=== PATIENT | male | born 1935 | race Caucasian/White ===

== ENCOUNTER 2020-08-12 07:42 | Outpatient (CLI) | payer MEDICARE, SELFPAY ==
--- NOTE | 2020-08-12 07:54 | ECHO_ITS ---
Patient Info Name: Ramirez Chang Age: 85 years : 1935 Gender: Male Ht: 68 in Wt: 170 lbs BSA: 1.94 m2 HR: 81 bpm BP: 159 / 80 mmHg Technical Quality: Good Exam Date: 08/12/2020 8:22 AM Exam Location: [facility] Patient Status: Outpatient Admit Date: 08/12/2020 Staff Ordering Physician: Bronson Joyce DO Coconut Candy Maker: HELDER Attending Provider: Bronson Joyce DO Exam Type: CA echo doppler color flow Study Info Indications I35.0 - Nonrheumatic aortic (valve) stenosis Complete two-dimensional, color flow and Doppler transthoracic echocardiogram is performed. Summary 1. Complete two-dimensional, color flow and Doppler transthoracic echocardiogram is performed. 2. Left ventricular chamber dimension is normal. 3. Left ventricular systolic function is normal, estimated at 60-65%. 4. The left ventricular diastolic function is abnormal. 5. There is mild to moderate aortic valve stenosis with a peak velocity of 256 cm/s, mean gradient of 13 mmHg, and aortic valve area of 1.1 cm2. 6. There is mild aortic valve calcification. 7. There is mild mitral valve regurgitation. 8. There is mild tricuspid valve regurgitation. 9. No pulmonary hypertension, estimated pulmonary arterial systolic pressure is 36 mmHg. 10. Compared to an echo done in 2019, there is some progression of aortic valve stenosis severity. Valve area measured 1.5 cm in 2019. Left Ventricle Left ventricular chamber dimension is normal. Left ventricular systolic function is normal, estimated at 60-65%. There is no increased left ventricular wall thickness. Left ventricular septal wall motion is normal. The left ventricular diastolic function is abnormal. Right Ventricle Right ventricular chamber dimension is normal. Right ventricular systolic function is normal. Left Atria Left atrial chamber dimension is mildly enlarged. Right Atria Right atrial chamber dimension is normal. Atrial Septum Intact interatrial septum visualized by color flow imaging. Aortic Valve The aortic valve is not well visualized. There is no aortic valve sclerosis. There is mild to moderate aortic valve stenosis with a peak velocity of 256 cm/s, mean gradient of 13 mmHg, and aortic valve area of 1.1 cm2. There is no aortic valve regurgitation. There is mild aortic valve calcification. Pulmonic Valve The pulmonic valve is normal. There is no pulmonic valve stenosis. There is no pulmonic regurgitation. Mitral Valve The mitral valve has calcified annulus. There is no mitral valve stenosis. There is mild mitral valve regurgitation. Tricuspid Valve The tricuspid valve leaflets are normal. There is no significant tricuspid valve stenosis. There is mild tricuspid valve regurgitation. No pulmonary hypertension, estimated pulmonary arterial systolic pressure is 36 mmHg. Pericardium/Pleural The pericardium appears normal. There is no pericardial effusion. Inferior Vena Cava Normal inferior vena cava with >50% collapse upon inspiration consistent with elevated right atrial pressure, 10 mmHg. Aorta The aortic root size at the sinus of Valsalva is normal. The prox ascending aorta size is normal. Left Ventricular Outflow Tract Name Value Normal LVOT 2D
== END 2020-08-12 07:43 | disposition home or self-care (01) ==
PROVIDERS: PCP Internal Medicine; Visit Provider Internal Medicine
DX: I35.0 Nonrheumatic aortic (valve) stenosis (principal); I34.0 Nonrheumatic mitral (valve) insufficiency; I36.1 Nonrheumatic tricuspid (valve) insufficiency
CPT/HCPCS: 93306

== ENCOUNTER 2021-04-14 12:05 | Outpatient (CLI) | payer MEDICARE, SELFPAY ==
--- NOTE | ~2021-04-14 | US_ITS ---
EXAMINATION: US carotid duplex BI DATE: 04/14/2021 12:31 INDICATION: Carotid bruit. TECHNIQUE: Grayscale, color Doppler, and pulsed Doppler images of the cervical carotid arteries were obtained. The degree of vessel stenosis is placed in one of the following categories: normal, <50%, 5 0-69%, >=70% but less than near-occlusion, near-occlusion, or total occlusion. Note that percent sten osis relative to normal distal artery lumen diameter is indirectly measured from velocity measurement s as described by Mandeep, et al. Radiology 2003; 229:340-346. COMPARISON: Neck CT 01/11/2017 FINDINGS: RIGHT: The right common carotid artery (CCA) peak systolic velocity (PSV) is 113 cm/s. The right internal ca rotid artery (ICA) PSV is 89 cm/s. The right ICA end-diastolic velocity (EDV) is 14 cm/s. The right I CA/CCA PSV ratio is 0.8. Grayscale and color Doppler images yield an estimate of <50% diameter reduct ion from plaque in the ICA. There is antegrade flow in the right vertebral artery. LEFT: The left CCA PSV is 102 cm/s. The left ICA PSV is 97 cm/s. The left ICA EDV is 15 cm/s. The left ICA/ CCA PSV ratio is 0.9. Grayscale and color Doppler images yield an estimate of <50% diameter reduction from plaque in the ICA. There is antegrade flow in the left vertebral artery. IMPRESSION: 1. <50% stenosis in the right internal carotid artery. 2. <50% stenosis in the left internal carotid artery. Reviewed, dictated and finalized at location A. LATORY AFFAIRS COORDINATOR
== END 2021-04-14 12:06 | disposition home or self-care (01) ==
PROVIDERS: PCP Internal Medicine; Visit Provider Internal Medicine Cardiovascular Disease
DX: R09.89 Other specified symptoms and signs involving the circulatory and respiratory systems (principal); I65.23 Occlusion and stenosis of bilateral carotid arteries
CPT/HCPCS: 93880

== ENCOUNTER 2021-09-07 13:08 | Outpatient (CLI) | payer MEDICARE, SELFPAY ==
--- NOTE | 2021-09-07 13:28 | ECHO_ITS ---
Patient Info Name: Ramirez Chang Age: 86 years : 1935 Gender: Male Ht: 68 in Wt: 170 lbs BSA: 1.94 m2 HR: 74 bpm BP: 129 / 73 mmHg Technical Quality: Good Exam Date: 09/07/2021 1:45 PM Exam Location: [facility] Patient Status: Outpatient Admit Date: 09/07/2021 Staff Ordering Physician: Satnam Mackenzie DO Automobile Glass Technician: Leighann Smith RCS Attending Provider: Satnam Mackenzie DO Referring Physician: Gurdeep HENRY; Exam Type: CA echo doppler color flow Study Info Indications - nonrheumatic aortic valve stenosis Complete two-dimensional, color flow and Doppler transthoracic echocardiogram is performed. Summary 1. Complete two-dimensional, color flow and Doppler transthoracic echocardiogram is performed. 2. Left ventricular chamber dimension is normal. 3. Left ventricular systolic function is normal, estimated at 65-70%. 4. The left ventricular diastolic function is grade I diastolic dysfunction. 5. E/e' 9 is minimally elevated. 6. Left atrial chamber dimension is mildly enlarged. 7. There is moderate aortic valve sclerosis. 8. There is mild aortic valve stenosis with a peak velocity of 224 cm/s, mean gradient of 11 mmHg, and aortic valve area of 1.7 cm2. 9. The mitral valve has mildly calcified annulus. 10. There is trace mitral valve regurgitation. 11. There is trace tricuspid valve regurgitation. 12. No pulmonary hypertension, estimated pulmonary arterial systolic pressure is 34 mmHg. 13. There is trace pulmonic regurgitation. Left Ventricle E/e' 9 is minimally elevated. Left ventricular chamber dimension is normal. Left ventricular systolic function is normal, estimated at 65-70%. The left ventricular diastolic function is grade I diastolic dysfunction. Right Ventricle Right ventricular chamber dimension is normal. Right ventricular systolic function is normal. Left Atria Left atrial chamber dimension is mildly enlarged. Right Atria Right atrial chamber dimension is normal. Aortic Valve The aortic valve is trileaflet. There is moderate aortic valve sclerosis. There is mild aortic valve stenosis with a peak velocity of 224 cm/s, mean gradient of 11 mmHg, and aortic valve area of 1.7 cm2. There is no aortic valve regurgitation. Pulmonic Valve There is trace pulmonic regurgitation. Mitral Valve The mitral valve has mildly calcified annulus. There is no mitral valve stenosis. There is trace mitral valve regurgitation. Tricuspid Valve There is trace tricuspid valve regurgitation. No pulmonary hypertension, estimated pulmonary arterial systolic pressure is 34 mmHg. Pericardium/Pleural There is no pericardial effusion. Inferior Vena Cava Normal inferior vena cava with >50% collapse upon inspiration consistent with normal right atrial pressure, 5 mmHg. Aorta The aortic root size at the sinus of Valsalva is normal. Left Ventricular Outflow Tract Name Value Normal LVOT 2D LVOT Diameter 2.0 cm LVOT Doppler LVOT Peak Gradient 6 mmHg LVOT Mean Gradient 3 mmHg LVOT VTI 26 cm
== END 2021-09-07 13:09 | disposition home or self-care (01) ==
LOC: ANHCARD 13:09
PROVIDERS: PCP Internal Medicine; Visit Provider Internal Medicine Cardiovascular Disease
DX: I35.0 Nonrheumatic aortic (valve) stenosis (principal)
CPT/HCPCS: 93306

== ENCOUNTER 2021-11-08 21:17 | Emergency (ER) | payer MEDICARE, SELFPAY ==
--- NOTE | ~2021-11-08 | XR_ITS ---
EXAMINATION: XR chest 2V Exam Date/Time: 11/08/2021 22:35 CDT HISTORY: MID STERNAL LT SIDE CHEST/BACK PAIN X 5HRS NO CARDIAC HX Comparison: 01/10/2017. RESULT: Lines, tubes, and devices: Cholecystectomy clips. Lungs and pleura: Low lung volumes. Senescent change with bibasilar scar/atelectasis. Cardiomediastinal silhouette: Stable. Other: No acute osseous or upper abdominal finding. IMPRESSION: No acute cardiopulmonary process. Reviewed, dictated and finalized at location K.
--- NOTE | 2021-11-08 21:19 | ECG_ITS ---
Measurements Intervals [place] Rate: 94 P: 59 UT: 168 QRS: 73 QRSD: 96 T: 63 QT: 338 QTc: 423 Interpretive Statements SINUS RHYTHM POSSIBLE LEFT ATRIAL ENLARGEMENT [-0.1mV P WAVE IN V1/V2] BORDERLINE ECG NO PREVIOUS ECG AVAILABLE FOR COMPARISON Electronically Signed On 11-09-2021 14:58:28 CDT by Thomas Munoz M.D.
[2021-11-08 21:28] VITALS: BP 138/39; PULSE 94; RESP 18; TEMP 37.3; O2SAT 97
[2021-11-08 21:38] LABS: Basophils Absolute Auto 0.1 K/mm3 (0.0-0.1); Basophils Percent Auto 0.5 % (0.2-1.2); Eosinophils Percent Auto 0.4 % (0-4.4); Hemoglobin 12.5 g/dL (14.0-18.0); Immature Granulocyte Absolute 0.05 K/mm3 (0.00-0.031); Immature Granulocyte Percent A 0.5 % (0-0.5); Lymphocytes Absolute Auto 1.19 K/mm3 (0.9-3.2); Lymphocytes Percent Auto 10.7 % (18.3-44.2); Mean Corpuscular HGB Conc 33.8 g/dl (32-36); Mean Corpuscular Hemoglobin 30.9 pg (26-34); Mean Corpuscular Volume 91.6 fl (80-100); Mean Platelet Volume 8.7 fl (7.4-10.4); Monocytes Absolute Auto 0.7 K/mm3 (0.1-0.6); Monocytes Percent Auto 6.7 % (2.6-8.5); Neutrophils Percent Auto 81.2 % (45.5-73.1); Platelet Count Result 170 k/mm3 (150-375); Red Blood Count 4.04 M/mm3 (4.6-6.20); Red Cell Distribution Width 13.2 % (11.5-14.5); White Blood Count 11.1 K/mm3 (4.5-10.0)
[2021-11-08 21:48] LABS: Alanine Aminotransferase 23 U/L (6-50); Albumin Level 4.3 g/dL (3.5-5.1); Alkaline Phosphatase 91 U/L (38-126); Anion Gap 8 mmol/L (8-16); Aspartate Amino Transferase 28 U/L (17-59); Bilirubin,Total 0.6 mg/dL (0.2-1.3); Blood Urea Nitrogen 20 mg/dL (9-20); Calcium 8.8 mg/dL (8.4-10.2); Carbon Dioxide 23 mmol/L (22-30); Chloride 98 mmol/L (98-107); Estimated CRCL calculation 52 ml/min; Estimated Glomerular Filt Rate > 60; Glucose 152 mg/dL (65-110); Lipase 55 U/L (23-300); Potassium 3.6 mmol/L (3.4-5.0); Sodium 129 mmol/L (137-145)
[2021-11-08 21:52] LABS: INR 1.2; Prothrombin Time 14.5 Seconds (11.1-14.7)
[2021-11-08 21:53] LABS: Partial Thromboplastin Time 33.1 SECONDS (22.3-36.8)
[2021-11-08 22:00] LABS: Troponin I < 0.012 ng/mL (0.000-0.034)
--- NOTE | 2021-11-09 01:48 | PC.NURSE ---
Pt ambulatory to ED. States i've been waiting here 5 hours. I have to give a ride to someone to the airport in 2 hours, and I don't think I will be done . Reports came in for left lateral chest pain that is worse with inspiration. Pt states I played golf today, I think that's what did it. I'm assuming everything is fine since I haven't been called back . States I actually feel better now . Explained that I have not looked at his labs that were drawn nor can comment on if normal or abnormal, that he needs to see a doctor. Verb understanding. States I'll be back if it starts hurting again . Pt and spouse ambulatory to d/c.
== END 2021-11-09 01:42 | disposition left against medical advice (07) ==
LOC: ANHED 23:51
PROVIDERS: Emergency Provider Emergency Medicine; PCP Internal Medicine
DX: R07.9 Chest pain, unspecified (principal); Z53.21 Procedure and treatment not carried out due to patient leaving prior to being seen by health care provider
CPT/HCPCS: 36415; 71046; 80053; 83690; 84484; 85025; 85610; 85730; 93005; 99199

== ENCOUNTER 2022-03-04 17:07 | Inpatient (IN) | payer MEDICARE, SELFPAY ==
[2022-03-04] VITALS (31 sets, daily range): BP systolic 120–152; BP diastolic 47–75; PULSE 63–91; RESP 17–31; TEMP 36.1–37.4; O2SAT 93–100; BMI 25.9; BMI 25.6
--- NOTE | ~2022-03-04 | XR_ITS ---
EXAMINATION: XR chest 2V DATE: 03/04/2022 18:58 INDICATION: Left chest pain. TECHNIQUE: Frontal and lateral views of the chest were obtained. COMPARISON: Chest 2 views 11/08/2021, CT abdomen and pelvis 02/27/2019 FINDINGS: There are airspace opacities at the lung bases. No pleural effusion or pneumothorax. The he art size is normal. Surgical clips in the right upper quadrant are likely from cholecystectomy. IMPRESSION: 1. Airspace opacities at the lung bases, likely atelectasis. Reviewed, dictated and finalized at location A. PROCESSOR
--- NOTE | ~2022-03-04 | CT_ITS ---
EXAMINATION: CTA chest PE protocol DATE: 03/04/2022 19:47 INDICATION: Left chest pain. TECHNIQUE: Computed tomography angiography (CTA) of the chest was performed with 100 mL Omnipaque-350 intravenous contrast timed to evaluate the pulmonary arteries. Coronal maximum intensity projection 3D-reconstructions were created by the technologist. Automated exposure control and iterative reconst ruction technique were employed. The dose-length product was 269.26 mGy-cm. COMPARISON: CT abdomen and pelvis 02/27/2019 FINDINGS: There is mild atelectasis bilaterally. There are airspace and groundglass opacities in left lower lobe, consistent with infarct. There are trace pleural effusions. Cardiomegaly is noted. No ri ght heart strain. No pericardial effusion. There are acute pulmonary emboli involving the upper lobes and lower lobes. There is mild thoracic spondylosis. IMPRESSION: 1. Acute pulmonary emboli involving the upper lobes and lower lobes. I called this result to Dr. Pierre beal. 2. Airspace and groundglass opacities in left lower lobe, consistent with infarct. Reviewed, dictated and finalized at location A. CAPTAIN IMPRESSION: 1. Acute pulmonary emboli involving the upper lobes and lower lobes. I called t his result to Dr. Robison. 2. Airspace and groundglass opacities in left lower lobe, consistent with infar ct.
--- NOTE | 2022-03-04 18:33 | ED.BACK ---
HPI - Back Pain/Injury General Chief Complaint: Back Pain/Injury Stated Complaint: BACK PAIN Time Seen by Provider: 03/04/22 17:47 History of Present Illness HPI Narrative: 86-year-old male presented to the emergency department for evaluation of left flank pain. Patient states over the course of the day he has developed left-sided chest wall/flank pain. Patient states that the pain started approximately 4 AM. Patient reports last week he did have influenza. Patient states pain is nonradiating at this time. Patient states pain did previously radiate to his left shoulder. Patient states pain is worsened with deep inspiration. Patient does report a history of hypertension, anemia, high cholesterol. Related Data Home Medications Medication Instructions Recorded Confirmed calcium polycarbophil 625 mg 1,250 mg PO BID 01/06/19 03/03/22 tablet (FiberCon) cetirizine 10 mg tablet (Zyrtec) 5 mg PO DAILY PRN 01/06/19 03/03/22 ferrous sulfate 325 mg (65 mg 325 mg PO DAILY 01/06/19 03/03/22 iron) tablet,delayed release acetaminophen 650 mg 650 mg PO Q12H 09/09/20 03/03/22 tablet,extended release (Tylenol Arthritis Pain) Allergies Allergy/AdvReac Type Severity Reaction Status Date / Time No Known Allergies Allergy Unknown Verified 03/04/22 17:13 Review of Systems Review of Systems: CONSTITUTIONAL: Denies fever, chills, or sweats. EYES: Denies visual changes, redness, or discharge. ENT: Denies rhinorrhea, congestion, sore throat, or otalgia. CARDIOVASCULAR: Left-sided chest wall pain tenderness to palpation RESPIRATORY: Denies cough or dyspnea. GASTROINTESTINAL: Denies abdominal pain, nausea, vomiting, or diarrhea. GENITOURINARY: Denies dysuria or hematuria. SKIN: Denies rash or itching. MUSCULOSKELETAL: Denies back pain, joint pain, or myalgia. NEUROLOGIC: Denies headache, numbness, or weakness. [facility] Past Medical History Medical History Allergies Skin cancer Family History Family History Sibling Malignant neoplasm of prostate Father Family history of lung cancer, Onset Age: 81 Patient's father is Mother Patient's mother is Social History Social History (Updated 03/03/22 @ 09:49 by Callum Flores MA) Smoking packs per day: 1 Smoking cigarettes per day: 20.0 Years smoked: 15 Smoking pack-years: 15.00 Smoking status: Former smoker Second hand tobacco smoke exposure: No Smoking end date: 02/06/72 Alcohol intake: current Lack of Transportation: No Lack of Food: Never True Current Housing: I Have Housing Concerned About Future Housing: No Difficulty Paying Gas/Electric Bills: No Difficulty Paying for Meds: No Currently Unemployed: No Education: High School Diploma/GED Difficulty w/ Childcare or Family Care: No Exam Narrative: APPEARANCE: Well appearing, no pain, no distress, well-nourished. HEAD: normocephalic, atraumatic. EYES: PERRLA/EOMI, conjunctivae clear. NOSE: Normal no drainages. RESPIRATORY: Airway patent, respirations nonlabored. Clear to auscultation bilaterally, no rales, rhonchi, wheezing. CARDIOVASCULAR: Regular rate and rhythm without murmurs rubs or gallops. Reproducible left-sided chest wall tenderness to palpation. ABDOMINAL: Soft, nontender, nondistended, normal bowel sounds MUSCULOSKELETAL: Moves all extremities. Strength/ROM intact, No edema, No calf tenderness. NEURO: Alert. Cranial nerves II through XII intact. Grossly intact SKIN: Warm, dry. Normal Color Course Course Emergency Course: D-dimer was ordered due to clinical concern for pulmonary embolism. Pneumonia, pneumothorax, rib fractures were excluded by the chest x-ray. Patient's D-dimer was elevated and ultimately the CTA did show left-sided pulmonary infarct along with pulmonary embolism. Patient was started on Lovenox. Nicole
[2022-03-04] MEDS: KETOROLAC 15 MG/ML VIAL (*BKC) IV PUSH (18:37)
[2022-03-04 18:52] LABS: Basophils Percent Auto 0.2 % (0.2-1.2); Eosinophils Percent Auto 0.2 % (0-4.4); Hematocrit 35.6 % (42.0-52.0); Hemoglobin 12.2 g/dL (14.0-18.0); Immature Granulocyte Absolute 0.11 K/mm3 (0.00-0.031); Immature Granulocyte Percent A 0.9 % (0-0.5); Lymphocytes Absolute Auto 1.36 K/mm3 (0.9-3.2); Lymphocytes Percent Auto 10.8 % (18.3-44.2); Mean Corpuscular HGB Conc 34.3 g/dl (32-36); Mean Corpuscular Volume 90.4 fl (80-100); Mean Platelet Volume 8.6 fl (7.4-10.4); Monocytes Absolute Auto 1.2 K/mm3 (0.1-0.6); Monocytes Percent Auto 9.5 % (2.6-8.5); Neutrophils Absolute Auto 9.9 K/mm3 (1.3-6.7); Neutrophils Percent Auto 78.4 % (45.5-73.1); Platelet Count Result 226 k/mm3 (150-375); Red Blood Count 3.94 M/mm3 (4.6-6.20); Red Cell Distribution Width 12.9 % (11.5-14.5); White Blood Count 12.7 K/mm3 (4.5-10.0)
[2022-03-04 18:54] LABS: Appearance Urine Clear (Clear); Bilirubin Urine Negative (Negative); Blood Urine Trace-lysed (Negative); Color Urine Yellow (Yellow); Glucose Urine UA Negative (Negative); Ketones Urine Negative (Negative); Leukocyte Esterase Ur Negative LEU/UL (Negative); Nitrate Urine Negative (Negative); Protein Urine Negative (Negative); Specific Grav Ur 1.015 (1.001-1.035)
[2022-03-04 19:01] LABS: Amorphous Sediment Urine Few; Squamous Epithelial Cell Urine Rare /hpf (Few); WBC Urine 0-3 /hpf
[2022-03-04 19:02] LABS: Alanine Aminotransferase 26 U/L (6-50); Alkaline Phosphatase 112 U/L (38-126); Anion Gap 7 mmol/L (8-16); Aspartate Amino Transferase 29 U/L (17-59); Bilirubin,Total 0.7 mg/dL (0.2-1.3); Blood Urea Nitrogen 19 mg/dL (9-20); Calcium 8.6 mg/dL (8.4-10.2); Carbon Dioxide 26 mmol/L (22-30); Chloride 92 mmol/L (98-107); Estimated CRCL calculation 58 ml/min; Estimated Glomerular Filt Rate > 60; Glucose 108 mg/dL (65-110); Sodium 125 mmol/L (137-145)
[2022-03-04 19:04] LABS: Add Urine Microscopic? YES
[2022-03-04] MEDS: SODIUM CHLORIDE 0.9% IV 1,000 ML 999 ML IV CONT (19:29)
--- NOTE | 2022-03-04 20:44 | PM.IMHP ---
H&P: HPI History of Present Illness Date/Time: 03/04/22 20:44 Chief Complaint: Ribcage pain Narrative: This is an 86-year-old male with past medical history significant for hypertension, dyslipidemia, skin cancer, peripheral venous insufficiency. Patient comes to the emergency room due to sudden onset of left-sided ribcage pain patient denies any hemoptysis, cough, had shortness of breath mainly at exertion, patient had been in his usual state of health up until this point, denies any fevers, rigors, chills, nausea, vomiting, abdominal pain, chest pain, no lightheadedness, no syncope, near syncope. Preliminary workup was significant for CT PE protocol of the chest was reported as: FINDINGS: There is mild atelectasis bilaterally. There are airspace and groundglass opacities in left lower lobe, consistent with infarct. There are trace pleural effusions. Cardiomegaly is noted. No right heart strain. No pericardial effusion. There are acute pulmonary emboli involving the upper lobes and lower lobes. There is mild thoracic spondylosis. IMPRESSION: 1. Acute pulmonary emboli involving the upper lobes and lower lobes. I called this result to Dr. Robison. 2. Airspace and groundglass opacities in left lower lobe, consistent with infarct. Patient has been admitted for further evaluation management and treatment. Review of Systems Review of Systems: Left-sided ribcage pain, will worse with deep inspiration, shortness of breath at exertion. Constitutional: Constitutional: Denies chills, Reports fatigue, Denies fever(s), Reports lethargy, Denies malaise, Denies night sweats, Denies poor appetite and Denies weakness Eyes: Eyes: Denies change in vision ENT: Denies dysphagia, Denies vertigo, Denies dizziness and Denies odynophagia Cardiovascular: Cardiovascular: Denies chest pain, Reports leg edema, Denies lightheadedness, Denies palpitations, Reports dyspnea and Denies dyspnea on exertion Respiratory: Respiratory: Denies chest congestion, Denies cough, Denies excessive phlegm production, Reports pain on inspiration and Reports dyspnea on exertion Gastrointestinal: Gastrointestinal: Denies abdominal pain, Denies dyspepsia, Denies diarrhea, Denies nausea and Denies vomiting Genitourinary: Genitourinary: Denies dysuria Musculoskeletal: Musculoskeletal: Denies back pain and Denies myalgias Integumentary/Breasts: Skin/Breast: Denies rash Neurologic: Denies vertigo, Denies dizziness, Denies focal weakness and Denies Sensory deficit (Neuro) Psychiatric: Psychiatric: Reports no additional psychiatric complaints and Reports as per HPI Endocrine: Endocrine: Denies cold intolerance, Denies flushing, Denies heat intolerance, Denies polyphagia, Denies polydipsia and Denies palpitations Hematologic/Lymphatic: Hematologic/Lymphatic: Reports no additional hematologic/lymphatic complaints and Reports as per HPI Allergic/Immunologic: Allergic/Immunologic: Reports no additional allergic/immunologic complaints and Reports as per HPI PMFSH Past Medical History Medical History Allergies Skin cancer Family History Family History Sibling Malignant neoplasm of prostate Father Family history of lung cancer, Onset Age: 81 Patient's father is Mother Patient's mother is Social History Social History (Updated 03/03/22 @ 09:49 by Callum Flores MA) Smoking packs per day: 1 Smoking cigarettes per day: 20.0 Years smoked: 15 Smoking pack-years: 15.00 Smoking status: Former smoker Tobacco type: cigarettes Second hand tobacco smoke exposure: No Smoking end date: 02/06/72 Alcohol intake: current Drinks per week: 1 Substance use: never Lack of Transportation: No Lack of Food: Never True Current Housing: I Have Housing Concerned About Future Housing: No Difficulty Paying Gas/Electr
--- NOTE | 2022-03-04 20:45 | ECG_ITS ---
Measurements Intervals [place] Rate: 74 P: 35 IN: 178 QRS: 64 QRSD: 97 T: 54 QT: 376 QTc: 417 Interpretive Statements SINUS RHYTHM POSSIBLE LEFT ATRIAL ENLARGEMENT BASELINE ARTIFACT- I, III, AVL BORDERLINE ECG COMPARED TO ECG 11/08/2021 21:23:10 NO SIGNIFICANT CHANGES Electronically Signed On 03-05-2022 7:39:44 MULTIMEDIA TECHNICIAN by Satnam Mackenzie D.O.
[2022-03-04] MEDS: ENOXAPARIN 80 MG/0.8 ML SYRINGE 77 MG SUB-Q (21:37)
--- NOTE | 2022-03-04 22:30 | ADMGEN ---
This patient, Ramirez Chang, was admitted to [facility] Surg Room 311-01 at 2215. Patient/family oriented to hospital policies and general routines including ID bracelet, bed and alarms, visiting hours, pain management, procedures, bathroom and other care routines, personal items, smoking policy, room service/diet, and visiting hours. Information on how to activate the Rapid Response Team has been discussed. Patient/Family are encouraged to report perceived risks to care and to ask questions if they do not understand what they are told or what they should do.
[2022-03-05 06:00] VITALS: BP 119/53; PULSE 74; RESP 16; TEMP 37.2; O2SAT 96
[2022-03-05] MEDS: TRIAMCINOLONE ACET 0.1% OINT 15 GM TUBE 1 APPLIC TOPICAL (09:22)
[2022-03-05] MEDS: hydroCHLOROthiazide 25 MG TABLET PO (09:22)
[2022-03-05] MEDS: ROSUVASTATIN 10 MG TABLET 20 MG PO (09:23)
[2022-03-05] MEDS: LORATADINE 5 MG TABLET PO (09:23)
[2022-03-05] MEDS: lisinopriL 20 MG TABLET 40 MG PO (09:23)
[2022-03-05] MEDS: ACETAMINOPHEN 325 MG TABLET 650 MG PO ×2 (09:25→20:50)
[2022-03-05] MEDS: ENOXAPARIN 80 MG/0.8 ML SYRINGE 77 MG SUB-Q (09:25)
[2022-03-05] MEDS: VERAPAMIL HCL 120 MG TABLET IMMED RELEASE PO ×2 (09:26→20:50)
[2022-03-05 14:00] VITALS: BP 120/46; PULSE 72; RESP 20; TEMP 36.2; O2SAT 97
--- NOTE | 2022-03-05 15:48 | PM.IMPN ---
Progress Note: A&P Assessment and Plan (1) Pulmonary embolism: Code(s): I26.99 - Other pulmonary embolism without acute cor pulmonale Status: Acute Assessment and Plan: Check echo for heart strain, start eliquis, monitor (2) Essential (primary) hypertension: Code(s): I10 - Essential (primary) hypertension Status: Acute Assessment and Plan: Resume home meds Continue to monitor (3) Mild aortic stenosis: Code(s): I35.0 - Nonrheumatic aortic (valve) stenosis Status: Acute Assessment and Plan: Follow-up in outpatient setting (4) Obstructive sleep apnea (adult) (pediatric): Code(s): G47.33 - Obstructive sleep apnea (adult) (pediatric) Status: Acute Assessment and Plan: CPAP at nighttime Plan DVT prophylaxis with Eliquis GI prophylaxis not indicated Code status full code Subjective Date/time seen: 03/05/22 15:48 Interval history: No overnight events noted. No chest pain or shortness of breath. No nausea, vomiting or diarrhea. No fevers or chills. Review of Systems Review of Systems: 12 point review of systems was assessed and was negative except as noted in the HPI Exam Narrative: General: No acute distress, alert and oriented per baseline HEENT: Atraumatic, normocephalic, mucous membranes moist CV: Regular rate and rhythm, S1, S2 Lungs: Clear to auscultation bilaterally, no rales or crackles noted, no wheezes, good air entry Abdomen: Soft, nontender, nondistended Extremities: Normal to inspection Skin: No rashes noted, no lesions or wounds seen Psych: Euthymic, normal affect Objective Data Vital Signs Vital Signs: Vital Signs - 24 hr 03/04/22 17:09 03/04/22 17:20 03/04/22 17:30 Temperature 99.3 F Pulse Rate 91 77 Respiratory Rate 20 24 H Blood Pressure 152/75 H Pulse Oximetry 98 93 100 Oxygen Delivery Room Air 03/04/22 17:45 03/04/22 18:00 03/04/22 18:15 Temperature Pulse Rate 74 67 67 Respiratory Rate 21 H 19 24 H Blood Pressure Pulse Oximetry 97 97 Oxygen Delivery 03/04/22 18:16 03/04/22 18:30 03/04/22 18:31 Temperature Pulse Rate 71 82 76 Respiratory Rate 20 21 H 19 Blood Pressure 120/47 L 135/53 L Pulse Oximetry Oxygen Delivery 03/04/22 18:45 03/04/22 18:46 03/04/22 19:00 Temperature Pulse Rate 63 64 67 Respiratory Rate 19 21 H 20 Blood Pressure 120/52 L Pulse Oximetry 97 97 100 Oxygen Delivery 03/04/22 19:15 03/04/22 19:43 03/04/22 19:45 Temperature Pulse Rate 68 67 Respiratory Rate 17 20 Blood Pressure 128/52 L Pulse Oximetry 98 97 98 Oxygen Delivery 03/04/22 19:46 03/04/22 20:00 03/04/22 20:01 Temperature Pulse Rate 72 77 77 Respiratory Rate 19 20 22 H Blood Pressure 132/69 Pulse Oximetry 98 99 99 Oxygen Delivery 03/04/22 20:15 03/04/22 20:16 03/04/22 20:17 Temperature Pulse Rate 67 69 69 Respiratory Rate 18 25 H 19 Blood Pressure 135/65 Pulse Oximetry 98 97 98 Oxygen Delivery 03/04/22 20:30 03/04/22 20:31 03/04/22 20:45 Temperature Pulse Rate 67 68 82 Respiratory Rate 31 H 22 H 20 Blood Pressure 142/52 H Pulse Oximetry 99 98 97 Oxygen Delivery 03/04/22 20:46 03/04/22 21:00 03/04/22 21:01 Temperature Pulse Rate 76 72 72 Respiratory Rate 22 H 22 H 21 H Blood Pressure 145/69 H 135/52 L Pulse Oximetry 98 98 97 Oxygen Delivery 03/04/22 21:15 03/04/22 21:16 03/04/22 21:30 Temperature Pulse Rate 76 75 73 Respiratory Rate 22 H 17 19 Blood Pressure 146/57 H Pulse Oximetry 99 98 94 Oxygen Delivery 03/04/22 22:29 03/05/22 06:00 03/05/22 14:00 Temperature 97.0 F L 99.0 F 97.2 F L Pulse Rate 88 74 72 Respiratory Rate 20 16 20 Blood Pressure 143/54 H 119/53 L 120/46 L Pulse Oximetry 94 96 97 Oxygen Delivery Intake/Output Intake/Output: Intake & Output 03/02/22 03/03/22 03/04/22 03/05/22 23:59 23:59 23:59 23:59 Intake Total 1000 680 O
[2022-03-05] MEDS: APIXABAN 5 MG TABLET 10 MG PO (20:50)
[2022-03-05 21:53] VITALS: BP 132/55; PULSE 83; RESP 18; TEMP 37.1; O2SAT 97
--- NOTE | 2022-03-06 | ECHO_ITS ---
Patient Info Name: Ramirez Chang Age: 86 years : 1935 Gender: Male Ht: 68 in Wt: 168 lbs BSA: 1.92 m2 HR: 73 bpm BP: 114 / 50 mmHg Technical Quality: Good Exam Date: 03/06/2022 11:03 AM Exam Location: [facility] Pulmonary Exam Room: 311 Patient Status: Inpatient Admit Date: 03/04/2022 Staff Ordering Physician: Hafsa Nunez DO Rolled Glass Crosscutter: Leighann Smith RDCS Attending Provider: Steve Calhoun MD Referring Physician: Mayra LITTLEJOHN; Exam Type: CA echo doppler color flow Study Info Indications - PULMONARY EMBOLISM Complete two-dimensional, color flow and Doppler transthoracic echocardiogram is performed. Summary 1. Complete two-dimensional, color flow and Doppler transthoracic echocardiogram is performed. 2. Left ventricular chamber dimension is normal. 3. Left ventricular systolic function is normal, estimated at 60-65%. 4. The left ventricular diastolic function is grade I diastolic dysfunction. 5. E/e' 10 is mildly elevated. 6. Left atrial chamber dimension is mildly enlarged. 7. Right atrial chamber dimension is mildly enlarged. 8. There is moderate aortic valve sclerosis. 9. There is mild aortic valve stenosis with a peak velocity of 216 cm/s, mean gradient of 11 mmHg, and aortic valve area of 1.9 cm2. 10. The mitral valve has moderately calcified annulus. 11. There is trace mitral valve regurgitation. 12. There is trace tricuspid valve regurgitation. 13. No pulmonary hypertension, estimated pulmonary arterial systolic pressure is 34 mmHg. 14. There is trace pulmonic regurgitation. Left Ventricle E/e' 10 is mildly elevated. Left ventricular chamber dimension is normal. Left ventricular systolic function is normal, estimated at 60-65%. The left ventricular diastolic function is grade I diastolic dysfunction. Right Ventricle Right ventricular systolic function is normal and with normal TAPSE 2.5 cm. Right ventricular chamber dimension is normal. Left Atria Left atrial chamber dimension is mildly enlarged. Right Atria Right atrial chamber dimension is mildly enlarged. Aortic Valve The aortic valve is trileaflet. There is moderate aortic valve sclerosis. There is mild aortic valve stenosis with a peak velocity of 216 cm/s, mean gradient of 11 mmHg, and aortic valve area of 1.9 cm2. There is no aortic valve regurgitation. Pulmonic Valve There is trace pulmonic regurgitation. Mitral Valve The mitral valve has moderately calcified annulus. There is no mitral valve stenosis. There is trace mitral valve regurgitation. Tricuspid Valve There is trace tricuspid valve regurgitation. No pulmonary hypertension, estimated pulmonary arterial systolic pressure is 34 mmHg. Pericardium/Pleural There is no pericardial effusion. Inferior Vena Cava Normal inferior vena cava with >50% collapse upon inspiration consistent with normal right atrial pressure, 5 mmHg. Aorta The aortic root size at the sinus of Valsalva is normal. Left Ventricular Outflow Tract Name Value Normal LVOT 2D LVOT Diameter 2.0 cm LVOT Doppler LVOT Peak Gradient 6 mmHg
[2022-03-06 06:00] VITALS: BP 114/50; PULSE 73; RESP 18; TEMP 36.8; O2SAT 96
--- NOTE | 2022-03-06 08:27 | PM.DS ---
DS: Admitting Diagnosis Discharge Date 03/06/22 Admitting Diagnosis chest pain DS: Discharge Diagnosis Discharge Diagnosis (1) Pulmonary embolism: Code(s): I26.99 - Other pulmonary embolism without acute cor pulmonale Status: Acute Assessment and Plan: Check echo for heart strain, start eliquis, monitor (2) Essential (primary) hypertension: Code(s): I10 - Essential (primary) hypertension Status: Acute Assessment and Plan: Resume home meds Continue to monitor (3) Mild aortic stenosis: Code(s): I35.0 - Nonrheumatic aortic (valve) stenosis Status: Acute Assessment and Plan: Follow-up in outpatient setting (4) Obstructive sleep apnea (adult) (pediatric): Code(s): G47.33 - Obstructive sleep apnea (adult) (pediatric) Status: Acute Assessment and Plan: CPAP at nighttime Plan DVT prophylaxis with Eliquis GI prophylaxis not indicated Code status full code DS: Summary Hospital Course Hospital Course: A 6-year-old male with past medical history significant for hypertension, dyslipidemia, peripheral vascular disease and skin cancers presenting to the ER with sudden onset left-sided chest pain, cough, shortness of breath with exertion and found to have a PE in the ER. He was started on therapeutic Lovenox which was converted to Eliquis. Echo was done showing no heart strain. He was not on any supplemental oxygenation. He tolerated the medication well. Of note, he has chronic hyponatremia and his sodium was 125 while he was here, previously was 129. His hydrochlorothiazide was discontinued and a repeat BMP will be checked in 1 week. Patient was completely asymptomatic. Prior to discharge, all symptoms had resolved. Time Spent with Patient Time attestation: Total time spent providing and/or coordinating discharge services: Exam Narrative: General: No acute distress, alert and oriented per baseline HEENT: Atraumatic, normocephalic, mucous membranes moist CV: Regular rate and rhythm, S1, S2 Lungs: Clear to auscultation bilaterally, no rales or crackles noted, no wheezes, good air entry Abdomen: Soft, nontender, nondistended Extremities: Normal to inspection Skin: No rashes noted, no lesions or wounds seen Psych: Euthymic, normal affect Discharge Plan Discharge Attending physician on discharge: Hafsa Nunez Discharging Clinician: Hafsa Nunez Patient Disposition: Home, Self-Care Activity: as tolerated Diet: as tolerated Patient Instructions: Antibiotic Form, Apixaban (By mouth) Stand Alone Forms: General Discharge Information Follow-up/Referrals: Bronson Joyce, [Primary Care Provider] - Discharge Medications: New Eliquis 5 mg Tablet 10 mg PO Q12HR 30 Days Qty: 120 0RF Continued acetaminophen [Tylenol Arthritis Pain] 650 mg tablet extended release 650 mg PO Q12H cetirizine [Zyrtec] 10 mg tablet 5 mg PO PRN PRN (Reason: Allergy Symptoms) triamcinolone acetonide 0.1 % ointment 1 applic topical BID Qty: 80 1RF verapamil 120 mg tablet 120 mg PO Q12H Qty: 180 1RF Rx Instructions: verapamil SR 120 rosuvastatin 20 mg tablet 20 mg PO DAILY Qty: 90 2RF lisinopril 40 mg tablet 40 mg PO DAILY Qty: 90 1RF Discontinued hydrochlorothiazide 25 mg tablet 25 mg PO DAILY Qty: 90 2RF Other Ambulatory Orders: Basic Metabolic Panel (Routine) Timeframe: 1 Week Location: Determined by Patient Ordered By: Hafsa Nunez Date of admission: 03/04/22 20:47 Primary Care Provider: Bronson Joyce Admitting Provider: Steve Calhoun V. Attending physician on admission: Steve Calhoun V. Condition: Serious
[2022-03-06] MEDS: ACETAMINOPHEN 325 MG TABLET 650 MG PO (09:56)
[2022-03-06] MEDS: lisinopriL 20 MG TABLET 40 MG PO (09:56)
[2022-03-06] MEDS: VERAPAMIL HCL 120 MG TABLET IMMED RELEASE PO (09:57)
[2022-03-06] MEDS: APIXABAN 5 MG TABLET 10 MG PO (09:57)
[2022-03-06] MEDS: hydroCHLOROthiazide 25 MG TABLET PO (09:57)
[2022-03-06] MEDS: ROSUVASTATIN 10 MG TABLET 20 MG PO (09:57)
[2022-03-06 13:43] LABS: Basophils Percent Auto 0.3 % (0.2-1.2); Eosinophils Absolute Auto 0.1 K/mm3 (0-0.3); Eosinophils Percent Auto 0.9 % (0-4.4); Hematocrit 34.4 % (42.0-52.0); Hemoglobin 11.9 g/dL (14.0-18.0); Immature Granulocyte Absolute 0.08 K/mm3 (0.00-0.031); Immature Granulocyte Percent A 0.8 % (0-0.5); Lymphocytes Absolute Auto 1.05 K/mm3 (0.9-3.2); Lymphocytes Percent Auto 10.6 % (18.3-44.2); Mean Corpuscular HGB Conc 34.6 g/dl (32-36); Mean Corpuscular Hemoglobin 30.8 pg (26-34); Mean Corpuscular Volume 89.1 fl (80-100); Mean Platelet Volume 8.5 fl (7.4-10.4); Monocytes Absolute Auto 0.7 K/mm3 (0.1-0.6); Monocytes Percent Auto 6.8 % (2.6-8.5); Neutrophils Percent Auto 80.6 % (45.5-73.1); Platelet Count Result 233 k/mm3 (150-375); Red Blood Count 3.86 M/mm3 (4.6-6.20); Red Cell Distribution Width 12.7 % (11.5-14.5); White Blood Count 9.9 K/mm3 (4.5-10.0)
[2022-03-06 13:46] LABS: Alanine Aminotransferase 23 U/L (6-50); Albumin Level 3.7 g/dL (3.5-5.1); Alkaline Phosphatase 104 U/L (38-126); Anion Gap 6 mmol/L (8-16); Aspartate Amino Transferase 21 U/L (17-59); Bilirubin,Total 0.7 mg/dL (0.2-1.3); Blood Urea Nitrogen 15 mg/dL (9-20); Calcium 8.3 mg/dL (8.4-10.2); Carbon Dioxide 25 mmol/L (22-30); Chloride 92 mmol/L (98-107); Estimated CRCL calculation 52 ml/min; Estimated Glomerular Filt Rate > 60; Glucose 136 mg/dL (65-110); Potassium 3.7 mmol/L (3.4-5.0); Sodium 123 mmol/L (137-145)
[2022-03-06 14:00] VITALS: BP 117/41; PULSE 67; RESP 22; TEMP 36.9; O2SAT 97
[2022-03-06] MEDS: SODIUM CHLORIDE 1 GM TABLET PO (17:26)
== END 2022-03-06 18:10 | disposition home or self-care (01) | DRG 176 ==
LOC: ANHED 18:03 → ANH3MEDSUR 21:04
PROVIDERS: Admitting Provider Internal Medicine; Emergency Provider Emergency Medicine; PCP Internal Medicine; Visit Provider Student in an Organized Health Care Education/Training Program
DX: I26.99 Other pulmonary embolism without acute cor pulmonale (principal); I10 Essential (primary) hypertension; I35.0 Nonrheumatic aortic (valve) stenosis; G47.33 Obstructive sleep apnea (adult) (pediatric); E78.5 Hyperlipidemia, unspecified; I73.9 Peripheral vascular disease, unspecified; D64.9 Anemia, unspecified; Z85.828 Personal history of other malignant neoplasm of skin; Z87.891 Personal history of nicotine dependence
CPT/HCPCS: 36415; 71046; 71275; 80053; 81001; 85025; 85380; 93005; 93306; 96361; 96374; 99291; A9270; J1650; J1885; J7030; Q9967

== ENCOUNTER 2022-03-17 09:59 | Outpatient (CLI) | payer MEDICARE, SELFPAY ==
--- NOTE | ~2022-03-17 | US_ITS ---
EXAMINATION: US venous doppler [facility] DATE: 03/17/2022 11:07 INDICATION: Acute pulmonary embolism TECHNIQUE: Cleary scale images without and with compression and Doppler images of the bilateral lower e xtremity veins were obtained. COMPARISON: 07/21/2011 FINDINGS: There is partial thrombosis of the right femoral vein. The right common femoral vein, profunda femora l vein, popliteal vein, peroneal trunk, posterior tibial veins, and greater saphenous vein are patent . The left common femoral vein, profunda femoral vein, femoral vein, popliteal vein, peroneal trunk, po sterior tibial veins, and greater saphenous vein are patent. IMPRESSION: 1. Partial thrombosis of the right femoral vein. Reviewed, dictated and finalized at location B. DRY AIDE
== END 2022-03-17 10:00 | disposition home or self-care (01) ==
LOC: ANHIMG 10:01
PROVIDERS: PCP Internal Medicine; Visit Provider Internal Medicine
DX: I82.411 Acute embolism and thrombosis of right femoral vein (principal); Z86.711 Personal history of pulmonary embolism
CPT/HCPCS: 93970

== ENCOUNTER 2023-01-26 09:51 | Outpatient (CLI) | payer MEDICARE, SELFPAY ==
--- NOTE | ~2023-01-26 | NM_ITS ---
EXAMINATION: NM kvng stress w perfusion DATE: 01/26/2023 13:18 INDICATION: Other forms of dyspnea TECHNIQUE: Rest images were obtained following intravenous administration of 9.4 mCi Tc99m tetrofosmi n (Myoview). The patient was infused intravenously with Lexiscan (Regadenoson). Then, 26.5 mCi Tc99m tetrofosmin (Myoview) was administered intravenously, and stress images were obtained. Data was recon structed into short axis and horizontal and vertical long axis SPECT images. Gated SPECT images were also obtained. COMPARISON: None. FINDINGS: There is no definite reversible or fixed perfusion abnormality to suggest ischemia or infar ction. There is normal left ventricular chamber size, wall motion and ejection fraction. Left ventr icular ejection fraction measures >70%. IMPRESSION: 1. Normal myocardial perfusion at rest and during stress. 2. Left ventricular ejection fraction measuring >70%. Reviewed, dictated and finalized at location A. ETING FINANCE SPECIALIST
--- NOTE | 2023-01-26 11:40 | EST_ITS ---
Patient Info Name: Ramirez Chang Age: 87 years : 1935 Gender: Male Ht: 68 in Wt: 17 lbs BSA: 0.56 m2 HR: 67 bpm BP: 169 / 65 mmHg Heart Rhythm: Sinus Rhythm Exam Date: 01/26/2023 11:50 AM Exam Location: Echo Lab Patient Status: Outpatient Admit Date: 01/26/2023 Staff Ordering Physician: Satnam Mackenzie DO Attending Provider: Satnam Mackenzie DO Exercise Technologist: Leeanne Salmon CT Exam Type: CA stress kvng w NM Study Info Indications Z01.810 - Encounter for preprocedural cardiovascular examination R06.09 - Other forms of dyspnea A regadenoson stress test was performed. Summary 1. 1. Negative lexiscan stress test for ischemic ST changes by ECG criteria. 2. 2. Stable hemodynamics throughout the test. 3. 3. Nuclear scan to follow and will be reported separately. Please correlate with it. 4. 4. Patient informed of the above results. Protocol: Lexiscan Stress ECG Details Stage: REST Duration (min): 3 min : 21 sec HR (bpm): 65 SBP (mmHg): 169 DBP (mmHg): 65 Stage: REST Duration (min): 8 min : 48 sec HR (bpm): 71 SBP (mmHg): 169 DBP (mmHg): 65 Stage: STAGE 1 Duration (min): 0 min : 59 sec HR (bpm): 88 SBP (mmHg): 169 DBP (mmHg): 65 Stage: RECOVERY Duration (min): 1 min : 0 sec HR (bpm): 91 SBP (mmHg): 181 DBP (mmHg): 59 Stage: RECOVERY Duration (min): 2 min : 0 sec HR (bpm): 88 SBP (mmHg): 181 DBP (mmHg): 59 Stage: RECOVERY Duration (min): 3 min : 0 sec HR (bpm): 83 SBP (mmHg): 181 DBP (mmHg): 59 Stage: RECOVERY Duration (min): 3 min : 27 sec HR (bpm): 84 SBP (mmHg): 166 DBP (mmHg): 61 Rest HR: 71 bpm Peak HR: 95 bpm Rest Sys BP: 169 mmHg Peak Sys BP: 181 mmHg Max Pred HR: 135 bpm % Max Pred HR: 70 % Target HR: 115 bpm Max RPP: 17,195 bpm*mmHg Termination Reason: Completed protocol Cardiac Symptoms: Shortness of breath Total Time: 1 min : 0 sec Rest White BP: 65 mmHg Peak White BP: 59 mmHg Total Dose: 0.4 mg Resting ECG Sinus rhythm. Stress ECG No ST changes. Arrhythmias None. Report Signatures
== END 2023-01-26 09:52 | disposition home or self-care (01) ==
LOC: ANHCARD 09:53
PROVIDERS: PCP Internal Medicine; Visit Provider Internal Medicine Cardiovascular Disease
DX: R06.09 Other forms of dyspnea (principal)
CPT/HCPCS: 78452; 93017; A9502; J2785

== ENCOUNTER 2023-09-13 21:18 | Emergency (ER) | payer MEDICARE, SELFPAY ==
[2023-09-13 21:20] VITALS: BP 190/58; PULSE 78; RESP 16; TEMP 36.8; O2SAT 100
[2023-09-13 21:29] VITALS: PULSE 76; RESP 20; O2SAT 99
--- NOTE | 2023-09-13 21:50 | ED.GENADULT ---
HPI - General Adult General Chief complaint: Unspecified <Abe Daugherty MD - Last Filed: 09/13/23 22:57> Stated complaint: lip swelling <Abe Daugherty MD - Last Filed: 09/13/23 22:57> Time Seen by Provider: 09/13/23 21:34 <Abe Daugherty MD - Last Filed: 09/13/23 22:57> History of Present Illness HPI narrative: This is an 88-year-old male with a past medical history significant for hypertension presently taking lisinopril. Patient presents to the ED for evaluation of lower lip swelling. Patient states that this has been developing over last 2 hours and been stable. Patient states that he has had no difficulty in breathing, no difficulty swallowing or a dysphonia. No dysphagia or drooling and is able to tolerate his oral secretions. He states that 2 hours ago he also had new [place] food at a restaurant he has never been to before and might attribute this to an allergic reaction of some sort. Denies any nausea, vomiting, headache, vision changes, abdominal pain, cramping, rash, itchiness. Was previously in his normal state of health. <Abe Daugherty MD - Last Filed: 09/13/23 22:57> Related Data Home medications: Home Medications Medication Instructions Recorded Confirmed cetirizine 10 mg tablet (Zyrtec) 5 mg PO PRN PRN Allergy Symptoms 01/06/19 05/17/23 acetaminophen 650 mg 650 mg PO Q12H 09/09/20 05/17/23 tablet,extended release (Tylenol Arthritis Pain) <Abe Daugherty MD - Last Filed: 09/13/23 22:57> Allergies/adverse reactions: Allergies Allergy/AdvReac Type Severity Reaction Status Date / Time folic acid AdvReac Mild Hives Verified 05/17/23 13:27 <Abe Daugherty MD - Last Filed: 09/13/23 22:57> Review of Systems Review of Systems: As reviewed above in the HPI <Abe Daugherty MD - Last Filed: 09/13/23 22:57> [facility] Past Medical History Medical History: Medical History Allergies Skin cancer <Abe Daugherty MD - Last Filed: 09/13/23 22:57> Family History Family History: Family History Sibling Malignant neoplasm of prostate Father Family history of lung cancer, Onset Age: 81 Patient's father is Mother Patient's mother is <Abe Daugherty MD - Last Filed: 09/13/23 22:57> Social History Social History: Social History Smoking packs per day: 1 Smoking cigarettes per day: 20.0 Years smoked: 15 Smoking pack-years: 15.00 Smoking status: Former smoker Tobacco type: cigarettes Second hand tobacco smoke exposure: No Smoking end date: 02/06/72 Alcohol intake: current Drinks per week: 1 Substance use: never Lack of Transportation: No Lack of Food: Never True Current Housing: I Have Housing Concerned About Future Housing: No Difficulty Paying Gas/Electric Bills: No Difficulty Paying for Meds: No Currently Unemployed: No Education: High School Diploma/GED Difficulty w/ Childcare or Family Care: No Spiritual care concerns: No <Abe Daugherty MD - Last Filed: 09/13/23 22:57> Exam Narrative: GENERAL: [Well-appearing, well-nourished, and in no acute distress.] HEAD: [Normocephalic, atraumatic.] EYES: [PERRLA and EOMI.] ENT: Bottom lip appears to have symmetric mild swelling without any intraoral involvement. No base of tongue swelling, no posterior uvular edema, no posterior oropharyngeal edema or exudates. Tolerating his oral secretions well without any pooling. Able to move his tongue in all directions easily, no tenderness. Nares clear, no rhinorrhea or epistaxis. Mucous membranes moist. NECK: Supple. CHEST: [Clear to auscultation. No respiratory distress.] HEART: [Regular ra
[2023-09-13 21:51] LABS: Basophils Percent Auto 0.4 % (0.2-1.2); Eosinophils Absolute Auto 0.2 K/mm3 (0-0.3); Eosinophils Percent Auto 3.5 % (0-4.4); Hemoglobin 11.9 g/dL (14.0-18.0); Immature Granulocyte Absolute 0.03 K/mm3 (0.00-0.031); Immature Granulocyte Percent A 0.4 % (0-0.5); Lymphocytes Absolute Auto 1.95 K/mm3 (0.9-3.2); Lymphocytes Percent Auto 28.2 % (18.3-44.2); Mean Corpuscular HGB Conc 31.3 g/dl (32-36); Mean Corpuscular Volume 86.2 fl (80-100); Mean Platelet Volume 9.2 fl (7.4-10.4); Monocytes Absolute Auto 0.6 K/mm3 (0.1-0.6); Neutrophils Percent Auto 58.5 % (45.5-73.1); Platelet Count Result 193 k/mm3 (150-375); Red Blood Count 4.41 M/mm3 (4.6-6.20); Red Cell Distribution Width 14.6 % (11.5-14.5); White Blood Count 6.9 K/mm3 (4.5-10.0)
[2023-09-13] MEDS: diphenhydrAMINE HCl INJ 50 MG/ML VIAL IV PUSH (21:54)
[2023-09-13] MEDS: LACTATED RINGERS 1,000 ML 999 ML IV CONT (21:54)
[2023-09-13] MEDS: EPINEPHrine HCL INJ 1 MG/ML AMPUL 0.3 MG IM (21:54)
[2023-09-13] MEDS: FAMOTIDINE 20 MG/2 ML VIAL IV PUSH (21:54)
[2023-09-13] MEDS: methylPREDNISolone SOD SUCC 125 MG VIAL IV PUSH (21:55)
[2023-09-13 22:01] LABS: Alanine Aminotransferase 25 U/L (6-50); Alkaline Phosphatase 81 U/L (38-126); Anion Gap 9 mmol/L (4-12); Aspartate Amino Transferase 26 U/L (17-59); Bilirubin,Total 0.3 mg/dL (0.2-1.3); Blood Urea Nitrogen 18 mg/dL (9-20); Calcium 8.7 mg/dL (8.4-10.2); Carbon Dioxide 26 mmol/L (22-30); Chloride 103 mmol/L (98-107); Estimated CRCL calculation 56 ml/min; Estimated Glomerular Filt Rate > 60; Glucose 119 mg/dL (65-110); Potassium 3.7 mmol/L (3.4-5.0); Sodium 138 mmol/L (137-145)
[2023-09-13 22:34] VITALS: BP 123/80; PULSE 81; RESP 23; O2SAT 99
--- NOTE | 2023-09-13 23:28 | PC.NURSE ---
this rn assumed care of patient. this rn took patient report from Dave Bates.
[2023-09-13 23:47] VITALS: BP 148/52; PULSE 77; RESP 21; O2SAT 100
[2023-09-14] VITALS (7 sets, daily range): BP systolic 139–157; BP diastolic 48–69; PULSE 72–85; RESP 17–23; O2SAT 97–98
== END 2023-09-14 02:47 | disposition home or self-care (01) ==
PROVIDERS: Student in an Organized Health Care Education/Training Program; Emergency Provider Preventive Medicine Aerospace Medicine
DX: T78.3XXA Angioneurotic edema, initial encounter (principal); I10 Essential (primary) hypertension; Z85.828 Personal history of other malignant neoplasm of skin; Z87.891 Personal history of nicotine dependence
CPT/HCPCS: 36415; 80053; 83735; 85025; 96361; 96372; 96374; 96375; 99284; J0171; J1200; J2919; J7120

== ENCOUNTER 2024-04-15 13:25 | Outpatient (CLI) | payer MEDICARE, SELFPAY ==
--- NOTE | 2024-04-15 13:33 | ECHO_ITS ---
Patient Info Name: Ramirez Chang Age: 89 years : 1935 Gender: Male Ht: 68 in Wt: 170 lbs BSA: 1.94 m2 HR: 76 bpm BP: 155 / 69 mmHg Heart Rhythm: Sinus Rhythm Technical Quality: Good Exam Date: 04/15/2024 1:39 PM Exam Location: Echo Lab Patient Status: Outpatient Admit Date: 04/15/2024 Staff Ordering Physician: Satnam Mackenzie DO Drier And Pulverizer Tender: Yady Peralta RDCS Attending Provider: Satnam Mackenzie DO Referring Physician: Gurdeep HENRY; Exam Type: CA echo doppler color flow Study Info Indications I35.0 - Nonrheumatic aortic (valve) stenosis Complete two-dimensional, color flow and Doppler transthoracic echocardiogram is performed. Summary 1. Complete two-dimensional, color flow and Doppler transthoracic echocardiogram is performed. 2. Left ventricular chamber dimension is normal. 3. Left ventricular systolic function is normal, estimated at 60-65%. 4. The left ventricular diastolic function is grade II diastolic dysfunction. 5. E/e' 14 is mildly elevated. 6. Left atrial chamber dimension is moderately enlarged. 7. There is moderate aortic valve sclerosis. 8. There is mild aortic valve stenosis with a peak velocity of 251 cm/s, mean gradient of 13 mmHg, and aortic valve area of 1.5 cm2. 9. The mitral valve has mildly calcified annulus. 10. There is mild mitral valve regurgitation. 11. There is mild tricuspid valve regurgitation. 12. No pulmonary hypertension, estimated pulmonary arterial systolic pressure is 34 mmHg. 13. There is trace pulmonic regurgitation. Left Ventricle E/e' 14 is mildly elevated. Left ventricular chamber dimension is normal. Left ventricular systolic function is normal, estimated at 60-65%. The left ventricular diastolic function is grade II diastolic dysfunction. Right Ventricle Right ventricular systolic function is normal and with normal TAPSE 2.6 cm. Right ventricular chamber dimension is normal. Left Atria Left atrial chamber dimension is moderately enlarged. Right Atria Right atrial chamber dimension is normal. Aortic Valve The aortic valve is trileaflet. There is moderate aortic valve sclerosis. There is mild aortic valve stenosis with a peak velocity of 251 cm/s, mean gradient of 13 mmHg, and aortic valve area of 1.5 cm2. There is no aortic valve regurgitation. Pulmonic Valve There is trace pulmonic regurgitation. Mitral Valve The mitral valve has mildly calcified annulus. There is no mitral valve stenosis. There is mild mitral valve regurgitation. Tricuspid Valve There is mild tricuspid valve regurgitation. No pulmonary hypertension, estimated pulmonary arterial systolic pressure is 34 mmHg. Pericardium/Pleural There is no pericardial effusion. Inferior Vena Cava Normal inferior vena cava with >50% collapse upon inspiration consistent with normal right atrial pressure, 5 mmHg. Aorta The aortic root size at the sinus of Valsalva is normal. Left Ventricular Outflow Tract Name Value Normal LVOT 2D LVOT Diameter 2.0 cm LVOT Doppler LVOT Peak Velocity 117 cm/s LVOT Peak Gradient 6 mmHg LVOT Mean Gradient 3 mmHg LVOT VTI 27 cm LVOT VTI/AV VTI Ratio 0.5 LVOT Stroke Volume 84 ml LVOT CO 4.8 l/min LVOT CI 2.5 l/min/m2 Pulmonic Valve Name Value Normal RVOT Doppler RVOT Peak Gradient 3 mmHg PV Doppler PV Peak Velocity 121 cm/s PV Peak Gradient 6 mmHg Mitral Valve Name Value Normal MV Doppler MV Decel [place] 630 cm/s2 MV PHT 44 ms MV Area (PHT) 5.0 cm2 4.0-5.0 MV Diastolic Function MV E Peak Velocity 96 cm/s MV A Peak Velocity 73 cm/s MV E/A 1.3 MV Decel Time 153 ms MV Annular TDI MV Septal e' Velocity 6.5 cm/s >=8.0 MV E/e' (Septal) 14.8 <=8.0 MV Lateral e' Velocity 7.1 cm/s >=10.0 MV E/e' (Lateral) 13.5 <=8.0 MV e' Average 6.83 MV E/e' (Average) 14.1 Tricuspid Valve Name Value Normal TV Regurgitation Doppler TR Peak Velocity 271 cm/s TR Peak Gradient 21 mmHg Estimated PAP/RSVP RA Pressure 5 mmHg <=5 PA Systolic Pressure 34 mmHg <36 RV Systolic Pressure 34 mmHg <36 TV Annular TDI TV Lateral Bettina s' Velocity 13.5 cm/s 9.5-18.7 Aorta Name Value Normal Ascending Aorta Ao Root Diameter (MM) 2.9 cm Ao Root Diam Index (MM) 1.5 cm/m2 Aortic Valve Name Value Normal AV Doppler AV Peak Velocity 251 cm/s AV Peak Gradient 25 mmHg AV Mean Gradient 13 mmHg AV VTI 55 cm AV Area (Cont Eq VTI) 1.5 cm2 >=3.0 AV Area (Cont Eq Gurinder) 1.4 cm2 AV V1/V2 Ratio 0.47 AV Regurgitation 2D LVOT Area 3.1 cm2 Ventricles Name Value Normal LV Dimensions 2D/MM IVS Diastolic Thickness (2D) 0.8 cm 0.6-1.0 LVID Diastole (2D) 5.4 cm 4.2-5.8 LVIW Diastolic Thickness (2D) 0.8 cm 0.6-1.0 LVID Systole (2D) 3.3 cm 2.5-4.0 LVOT Diameter 2.0 cm LV Mass (2D Cubed) 148.32 g 88.00-224.00 LV Mass Index (2D Cubed) 77 g/m2 49-115 Relative Wall Thickness (2D) 0.28 LV Fractional Shortening/Ejection Fraction 2D/MM LV Fractional Shortening (2D) 39 % 25-43 LV EF (2D Teicholz) 68 % 52-72 LV Diastolic Volume (4C MOD) 76 ml LV EF (4C MOD) 73 % LV Diastolic Volume (2C MOD) 69 ml LV EF (2C MOD) 67 % LV Diastolic Volume (BP MOD) 74 ml 62-150 LV Diastolic Volume Index (BP MOD) 38 ml/m2 34-74 LV Systolic Volume (BP MOD) 22 ml 21-61 LV Systolic Volume Index (BP MOD) 11 ml/m2 11-31 LV EF (BP MOD) 71 % 52-72 LV Diastolic Length (4C) 7.9 cm LV Systolic Length (4C) 5.9 cm LV Stroke Volume (4C MOD) 56 ml Atria Name Value Normal LA Dimensions LA Dimension (MM) 5.3 cm 3.0-4.1 LA Volume (4C A-L) 110 ml LA Volume (BP A-L) 105 ml RA Dimensions RA Area (4C) 22.9 cm2 <=18.0 Report Signatures
--- OUTSIDE RECORDS SUMMARY | 2024-04-15 14:59 | XMS_ITS | Encounter Summary ---
Author Organization [facility] Address [address] [place] [address] Care Team Providers Care Hydrographical Technical Officer Name Role Phone Bronson Joyce Primary Care Provider Encounter Details Date Type Department Care Team (Late st Contact Info) Description 09/03/2018 Lab Requisition [facility] Care DermPath Lab [address] [facility] [place] [address] Johnson Cueva MD [address] [place] [address] Social History Tobacco Use Types Packs/Day Years Used Date Smoking Tobacco: Never Assessed Sex and Gender Information Value Date Recorded Sex Assigned at Not on file Gender Identity Not on file Sexual Orientation Not on file documented as of this encounter Plan of Treatment Not on file documented as of this encounter Procedures Procedure Name Priority Date/Time Associated Diagnosis Comments DERMATOPATHOLOGY Routine 09/02/2018 12:0 0 AM CDT documented in this encounter Results * DERMATOPATHOLOGY (09/02/2018 12:00 AM CDT) Case Report Dermatopathology Report Case: [id number] Authorizing Provider: Johnson Ceuva MD Collected: 09/02/2018 12:00 AM Pathologist: Clem Davison MD Received: 09/03/2018 11:34 AM Specimen: Skin, left ant neck base 9 5:50 PM CDT DERMATOPATHOLOGY LABORATORY Final Diagnosis Specimen A. SKIN, left ant neck base: BASAL CELL CARCINOMA, SUPERFICIAL MULTIFOCAL (C44.41) NOT PRESENT AT SAMPLED MARGIN 5:50 PM CDT DERMATOPATHOLOGY LABORATORY Clinical History R/O BCC. Check margins. 5:50 PM CDT DERMATOPATHOLOGY LABORATORY Gross Description Specimen A: Received is one formalin filled container labeled with the patients name and designated left ant neck base. The specimen consists of a shave removal measuring [id number]. The margin is inked green. Jar 0. 5:50 PM CDT DERMATOPATHOLOGY LABORATORY Microscopic Description Specimen A. SKIN, left ant neck base: Attached to the undersurface of the epidermis, there are small aggregates of basaloid cells with a high nuclear to cytoplasmic ratio and peripheral palisading. This lesion is not present at the sampled margin of the specimen. 5:50 PM CDT DERMATOPATHOLOGY LABORATORY Disclaimer An external and internal positive and negative controls are appropriate for the histochemical, immunohistochemical and immunofluorescence stain(s) in this case (if any), except where stated explicitly. The performance characteristics of the stain(s) cited in this report were developed and its performance characteristic determined by the Dermatopathology Laboratory at [facility], directed by Dr. Smitha Davison. These tests need not be, and therefore are not, approved by the [place] Food and Drug Administration. The tests are used for clinical purposes. Billing Codes Specimen Charges Stain Charges 15499 1 5:50 PM CDT DERMATOPATHOLOGY LABORATORY Embedded Images 5:50 PM CDT DERMATOPATHOLOGY LABORATORY Pathology/Cytolog y TISSUE SPECIMEN FROM SKIN / Unknown 09/02/2018 09/03/2018 11:34 AM CDT Johnson Cueva MD LAB - PATHOLOGY/CYTO LOGY ORDERABLES DERMATOPATHOLOGY LABORATORY [facility] - Department of Dermatology [address] [place] [address], 5th Floor Lab [address] [phone] documented in this encounter Visit Diagnoses Not on filedocumented in this encounter Care Teams Hydrographical Technical Officer Relationship Specialty Start Date End Date Bronson Joyce DO [address] [facility] [address] [place] [address] PCP - General 02/08/18 documented as of this encounter
--- OUTSIDE RECORDS SUMMARY | 2024-04-15 14:59 | XMS_ITS | Clinical Summary ---
Author Organization [facility] Address [address] [place] [address] Care Team Providers Care Parachute Cushion Installer Name Role Phone Bronson Joyce Primary Care Provider [phone] Source Comments [facility],non-owned Affiliates and Associated Physician Practices is amultiple site organization consisting of ambulatory clinics and hospital sitesin [place], [place], [place] and [place]. This disclosure is being madepursuant to the Care Everywhere program and may not contain all information available regarding this patient. Last updated 17.[facility] Social History Tobacco Use Types Packs/Day Years Used Date Smoking Tobacco: Never Assessed Sex and Gender Information Value Date Recorded Sex Assigned at Not on file Gender Identity Not on file Sexual Orientation Not on file Last Filed Vital Signs Vital Sign Reading Time Taken Comments Blood Pressure 151/71 05/23/2016 11:50 AM CDT Pulse 69 05/23/2016 11:50 AM CDT Temperature - - Respiratory Rate - - Oxygen Saturation 98% 05/23/2016 11:50 AM CDT Inhaled Oxygen Concentration - - Weight 78.5 kg (173 lb) 05/23/2016 8:00 AM CDT Height 172.7 cm (5' 8 ) 05/23/2016 8:00 AM CDT Body Mass Index 26.3 05/23/2016 8:00 AM CDT Plan of Treatment Health Maintenance Due Date Last Done Comments MEDICARE AWV 12 MONTHS 1937 DTAP/TDAP/TD VACCINES (1 - Tdap) 1956 PNEUMOCOCCAL VACCINE 50+ (1 of 1 - PCV) 1987 ZOSTER VACCINE (1 of 2) 1987 Respiratory Syncytial Virus (RSV) Vaccine Pt: or over 60 yrs (1 - 1-dose 75+ series) 2012 COVID-19 VACCINE ( - 2023-2 5 season) 2023 INFLUENZA VACCINE (#1) 2023 DEPRESSION SCREENING 02/06/2024 HEPATITIS B VACCINE Aged Out No longe r eligible based on patient's age to complete this topic HIB VACCINE Aged Out No longer eligi ble based on patient's age to complete this topic HPV VACCINE Aged Out No longer eligi ble based on patient's age to complete this topic MENINGOCOCCAL (Group B) VACCINE Aged Out No longer eligible based on patient's age to complete this topic MENINGOCOCCAL VACCINE Aged Out No ban adriana eligible based on patient's age to complete this topic Care Teams Parachute Cushion Installer Relationship Specialty Start Date End Date Bronson Joyce DO [address] [facility] [address] [place] [address] PCP - General 02/08/18
--- OUTSIDE RECORDS SUMMARY | 2024-04-15 14:59 | XMS_ITS | Patient Health Summary ---
Author Organization [facility] Address [address] [facility] [place] [address] Care Team Providers Care Last Greaser Name Role Phone Bronson Joyce Primary Care Provider [phone] Note from [facility],non-owned Affiliates and Associated Physician Practices is amultiple site organization consisting of ambulatory clinics and hospital sitesin [place], [place], [place] and [place]. This disclosure is being madepursuant to the Care Everywhere program and may not contain all information available regarding this patient. Last updated 17.[facility] Social History Tobacco Use Types Packs/Day Years [...] Mass Index 26.3 05/23/2016 8:00 AM CDT Procedures * DERMATOPATHOLOGY(Performed 11/21/2023) * DERMATOPATHOLOGY(Performed 01/04/2022) * DERMATOPATHOLOGY(Performed 05/13/2019) * DERMATOPATHOLOGY(Performed 09/02/2018) * DERMATOPATHOLOGY(Performed 03/01/2016) * DERMATOPATHOLOGY(Performed 02/17/2015) * DERMATOPATHOLOGY(Performed 01/12/2015) * DERMATOPATHOLOGY(Performed 12/09/2014) * DERMATOPATHOLOGY(Performed 03/02/2011) * DERMATOPATHOLOGY(Performed 04/22/2010) Results * DERMATOPATHOLOGY (11/21/2023 12:00 AM CDT) Only the most recent of10 resultswithin the time period is included. Case Report Dermatopathology Report Case: [id number] Authorizing Provider: Johnson Cueva MD Collected: 11/21/2023 12:00 AM Ordering Location: [facility] - Received: 11/23/2023 02:17 PM DermPath Lab Pathologist: Clem Davison MD Specimen: Skin, right mid calf 2:46 PM CDT DERMATOPATHOLOGY LABORATORY Final Diagnosis Specimen A. SKIN, right mid calf: ACTINIC KERATOSIS (L57.0) STASIS DERMATITIS (L30.8) 2:46 PM CDT DERMATOPATHOLOGY LABORATORY Clinical History R/O SCC vs Morris's vs ISK. 2:46 PM CDT DERMATOPATHOLOGY LABORATORY Gross Description Specimen A: Received is one formalin filled container labeled with the patient's name and designated right mid calf. The specimen consists of a shave biopsy measuring 85s01z1 mm. Jar 0. 2:46 PM CDT DERMATOPATHOLOGY LABORATORY Microscopic Description Specimen A. SKIN, right mid calf: There is focal parakeratosis. The lower half of the epidermis shows disorderly maturation of keratinocytes with nuclear pleomorphism. There is focal spongiosis. The dermis shows a sparse, perivascular lymphocytic infiltrate surrounding dilated, thick-walled vessels, which are increased in number. 2:46 PM CDT DERMATOPATHOLOGY LABORATORY Disclaimer An external and internal positive and negative controls are appropriate for the histochemical, immunohistochemical and immunofluorescence stain(s) in this case (if any), except where stated explicitly. The performance characteristics of the stain(s) cited in this report were developed and its performance characteristic determined by the Dermatopathology Laboratory at [facility], directed by Dr. Smitha Davison. These tests need not be, and therefore are not, approved by the [place] Food and Drug Administration. The tests are used for clinical purposes. Billing Codes Specimen Charges Stain Charges 92529 1 2:46 PM CDT DERMATOPATHOLOGY LABORATORY Embedded Images 2:46 PM CDT DERMATOPATHOLOGY LABORATORY Pathology/Cytolog y TISSUE SPECIMEN FROM SKIN / Unknown 11/21/2023 11/23/2023 2:17 PM CDT Johnson Cueva MD LAB - PATHOLOGY/CYTO LOGY ORDERABLES DERMATOPATHOLOGY LABORATORY [facility] - Department of Dermatology [facility] Medicine [address] [place] [address], [address] [phone] Care Teams Last Greaser Relationship Specialty Start Date End Date Bronson Joyce DO [address] [facility] [address] [place] [address] PCP - General 02/08/18
--- OUTSIDE RECORDS SUMMARY | 2024-04-15 14:59 | XMS_ITS | Clinical Summary ---
Author Organization [facility] Address [address] [address] Phone Care Team Providers Care Retail Visual Merchandiser Name Role Phone Bronson Joyce DO Primary Care Provider [phone] Social History Tobacco Use Types Packs/Day Years Used Date Smoking Tobacco: Never Assessed Sex and Gender Information Value Date Recorded Sex Assigned at Not on file Legal Sex Male 8:08 PM CDT Gender Identity Not on file Sexual Orientation Not on file Plan of Treatment Health Maintenance Due Date Last Done Comments Hepatitis C Virus (HCV) Screening 1935 TdaP Immunization 1935 Pneumococcal Immunization (5 0+ years) (1 of 1 - PCV) 1987 Zoster Immunization (1 of 2) 1987 Respiratory Syncytial Virus (RSV) Immunization (Adult) (1 - 1-dose 75+ series) 2012 Influenza Immunization (#1) 2023 SARS-COV-2 Immunization ( season) 2023 Hepatitis B Immunization Aged Out No longer eligible based on patient's age to complete this topic Meningococcal Immunization (ACWY) Aged Out No longer eligible based on patient's age to complete this topic Rotavirus Immunization Aged Out No lo nger eligible based on patient's age to complete this topic Insurance MEDICARE Care Teams Retail Visual Merchandiser Relationship Specialty Start Date End Date Bronson Joyce DO [address] [place] [address] PCP - General Internal Medicine 01/07/18
--- OUTSIDE RECORDS SUMMARY | 2024-04-15 14:59 | XMS_ITS | Clinical Summary ---
Author Organization [facility] [address] Address [address] [place] [address] Care Team Providers Care Eyeglass Frames Inspector Name Role Phone Bronson Joyce MD Primary Care Provider [phone] Allergies No known active allergies Medications rosuvastatin (CRESTOR) 20 mg tabletIndication s:hyperlipidemia Take 1 tablet (20 mg total) by mouth nightly Active lisinopriL (PRINIVIL,ZESTRI L) 40 mg tabletIndication s:hypertension Take 1 tablet (40 mg total) by mouth every morning 2 Active verapamiL (CALAN) 120 mg tabletIndication s:hypertension Take 1 tablet (120 mg total) by mouth 2 (two) times a day 2 Active cetirizine (ZyrTEC) 10 mg tabletIndication s:Allergic Rhinitis Take 1 tablet (10 mg total) by mouth every morning Active apixaban (ELIQUIS) 2.5 mg tabletIndication s:VTE Prophylaxis Following Ortho Surgery Take 1 tablet (2.5 mg total) by mouth 2 (two) times a day 60 tablet 3 Active ergocalciferol (VITAMIN D) 50,000 unit capsule TAKE 1 CAP 2 X A WEEK FOR 8 WEEKS THEN FOLLOW UP WITH YOUR PCP. 16 capsule 3 Active traMADoL (ULTRAM) 50 mg tablet Take 1 tablet (50 mg total) by mouth every 8 (eight) hours as needed for pain for up to 42 doses 42 tablet 4 Active triamcinolone (KENALOG) 0.1 % cream Apply 1 g topically as needed for irritation or rash DO NOT APPLY TO LEFT KNEE SURGICAL INCISION. 4 Active acetaminophen (TYLENOL) 500 mg tablet Take 2 tablets (1,000 mg total) by mouth every 8 (eight) hours 90 tablet 4 Active meloxicam (MOBIC) 7.5 mg tablet Take 1 tablet (7.5 mg total) by mouth daily 30 tablet 4 Active senna-docusate (PERICOLACE) 8.6-50 mg Take 2 tablets by mouth daily May increase to 4 tablets twice daily if needed. HOLD medication for diarrhea. 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 01/23/2023 Primary osteoarthritis of left knee 11/27/2022 Knee pain 05/06/2015 Immunizations Immunization Administration Dates Next Due Influenza, Trivalent, Adjuvanted, Intramuscular 11/06/2018 Surgical History Surgery Date Site/Laterality Comments HERNIA REPAIR 1963, 1989 CHOLECYSTECTOMY 02/05/1990 - 02/04/1991 JOINT REPLACEMENT 02/05/2010 - 02/04/2011 Right TKA COLONOSCOPY multiple Medical History Medical History Date Comments Osteoarthritis Skin cancer HTN (hypertension) Aortic regurgitation Sleep apnea DVT (deep venous thrombosis) (HCC) 03/2022 and PE Family History Medical History Relation Name Comments Anesthesia problems Neg Hx Social History Tobacco Use Types Packs/Day Years Used Date Smoking Tobacco: Former Smokeless Tobacco: Never Comments:50 years ago AUDIT-C Answer Date Recorded Q1: How often do you have a drink containing alc ohol? 2-3 times a week 02/06/2023 Q2: How many drinks containi ng alcohol do you have on a typical day when you are drinking? 1 or 2 02/06/2023 Frequency of Binge Drinking Not on file 03/2023 Personal Safety Answer Date Recorded Have you ever been in or are you currently in a harmful physical or emotional relationship or is someone making you feel afraid or unsafe? Denies 02/06/2023 Sex and Gender Information Value Date Recorded Sex Assigned at Not on file Legal Sex Male 2:21 AM INTERACTIVE DEVELOPER Gender Identity Not on file Sexual Orientation Not on file Obstetrics History Last Filed Vital Signs Vital Sign Reading Time Taken Comments Blood Pressure 106/51 02/07/2023 9:10 AM INTERACTIVE DEVELOPER Pulse 105 02/07/2023 9:10 AM INTERACTIVE DEVELOPER Temperature 36.1 C (97 F) 02/07/2023 7:39 AM INTERACTIVE DEVELOPER Respiratory Rate 16 02/07/2023 7:39 AM INTERACTIVE DEVELOPER Oxygen Saturation 93% 02/07/2023 9:10 AM INTERACTIVE DEVELOPER Inhaled Oxygen Concentration - - Weight 79.2 kg (174 lb 9.6 oz) 02/06/2023 7:39 A M INTERACTIVE DEVELOPER Height 172.7 cm (5' 8 ) 02/06/2023 7:39 AM INTERACTIVE DEVELOPER Body Mass Index 26.55 02/06/2023 7:39 AM INTERACTIVE DEVELOPER Plan of Treatment Health Maintenance Due Date Last Done Comments Depression Screening 1937 DTaP/Tdap/Td Vaccine (1 - Tdap) 1948 Hepatitis B Screening 1955 Pneumococcal vaccine 65+ (1 of 1 - PCV) 1987 Zoster Vaccine (1 of 2) 1987 Well Visit 65+ 2002 Influenza Vaccine (#1) 2023 11/06/2018 Fall Risk Assessment 02/08/2024 02/07/2023 Medical Devices Implanted Type Area Supervisor Communications And Signals Device Identifier Shelf Expiration Date Model / Serial / Lot [employer] Attune Fb Tib Base Sz 7 Por [id number] - Sna - [id number] Implanted:Qty: 1 on 02/06/2023 by Kole White MD at [facility] Other - see comments [employer] [id number] 11/04/2032 [id number] / NA / [id number] Description:Implant pause pe rformed [employer] Attune Cruciate Retain Cementless Knee Left 6 Component Femoral [id number] - Sna - [id number] Implanted:Qty: 1 on 02/06/2023 by Kole White MD at [facility] Other - see comments Left: Knee [employer] [id number] 05/05/2032 [id number] / NA / [id number] Description:Implant pause pe rformed Attune Knee System Tibial Insert Fixed Bearing Medial Stabilized Size 6 Left 16mm Aox Implanted:Qty: 1 on 02/06/2023 by Kole White MD at [facility] Other - see comments Left: Knee [employer] DUP 02/04/2030 1518-20-616 / / [id number] Description:Implant pause pe rformed Knee Right: Knee Insurance MEDICARE AETNA [facility] MEDIC[place] [address] MEDICARE AETNA SENIOR SUPPLEMENT Advance Directives For more information, please contact: [phone] * Full Code (Latest Code Status on File) Date Activated Date Inactivated Comments 02/06/2023 10:49 AM 02/07/2023 3:38 PM Care Teams Eyeglass Frames Inspector Relationship Specialty Start Date End Date Bronson Joyce MD [address] [facility] [address] [place] [address] PCP - General 06/18/14
--- OUTSIDE RECORDS SUMMARY | 2024-04-15 14:59 | XMS_ITS | Referral Summary ---
Author Organization [facility] Address [address] [facility] [place] [address] Care Team Providers Care Marketing Database Coordinator Name Role Phone Bronson Joyce Primary Care Provider [phone] [phone] Source Comments [facility],non-owned Affiliates and Associated Physician Practices is amultiple site organization consisting of ambulatory clinics and hospital sitesin [place], [place], [place] and [place]. This disclosure is being madepursuant to the Care Everywhere program and may not contain all information available regarding this patient. Last updated 17.[facility] Social History Tobacco Use Types Packs/Day [...] 05/23/2016 8:00 AM CDT Plan of Treatment Not on file Care Teams Marketing Database Coordinator Relationship Specialty Start Date End Date Bronson Joyce DO [address] [facility] [address] [place], [place] [id number] PCP - General 02/08/18
--- OUTSIDE RECORDS SUMMARY | 2024-04-15 14:59 | XMS_ITS | Referral Summary ---
Author Organization [facility] [address] Address [address] [place] [address] Care Team Providers Care Shoulder Pad Molder Name Role Phone Bronson Joyce MD Primary Care Provider [phone]- [phone] Allergies No known active allergies Medications rosuvastatin [...] Next Due Influenza, Trivalent, Adjuvanted, Intramuscular 11/06/2018 Social History Tobacco Use Types Packs/Day Years [...] on file Legal Sex Male 2:21 AM GOVERNMENT SERVICES PROFESSIONAL Gender Identity Not on file Sexual Orientation Not on file Last Filed Vital Signs Vital Sign Reading Time Taken Comments Blood Pressure 106/51 02/07/2023 9:10 AM GOVERNMENT SERVICES PROFESSIONAL Pulse 105 02/07/2023 9:10 AM GOVERNMENT SERVICES PROFESSIONAL Temperature 36.1 C (97 F) 02/07/2023 7:39 AM GOVERNMENT SERVICES PROFESSIONAL Respiratory Rate 16 02/07/2023 7:39 AM GOVERNMENT SERVICES PROFESSIONAL Oxygen Saturation 93% 02/07/2023 9:10 AM GOVERNMENT SERVICES PROFESSIONAL Inhaled Oxygen Concentration - - Weight 79.2 kg (174 lb 9.6 oz) 02/06/2023 7:39 A M GOVERNMENT SERVICES PROFESSIONAL Height 172.7 cm (5' 8 ) 02/06/2023 7:39 AM GOVERNMENT SERVICES PROFESSIONAL Body Mass Index 26.55 02/06/2023 7:39 AM GOVERNMENT SERVICES PROFESSIONAL Plan of Treatment Not on file Medical Devices Implanted Type Area Commercial Field Inspector Device Identifier Shelf Expiration Date Model / Serial / Lot [employer] Attune Fb Tib Base Sz 7 Por [id number] - Sna - [id number] Implanted:Qty: 1 on 02/06/2023 by Kole White MD at [facility] Other - see comments [employer] [id number] 11/04/2032 [id number] / NA / [id number] Description:Implant pause pe rformed [employer] Attune Cruciate Retain Cementless Knee Left 6 Component Femoral [id number] - Sna - [id number] Implanted:Qty: 1 on 02/06/2023 by Kole White MD at [facility] Other - see comments Left: Knee [employer] [id number] 05/05/2032 [id number] / NA / [id number] Description:Implant pause pe rformed Attune Knee System Tibial Insert Fixed Bearing Medial Stabilized Size 6 Left 16mm Aox Implanted:Qty: 1 on 02/06/2023 by Kole White MD at [facility] Other - see comments Left: Knee [employer] DUP 02/04/2030 [id number] / / [id number] Description:Implant pause pe rformed Knee Right: Knee Insurance MEDICARE AET SENIOR [place]LE[place] [address] MEDICARE AETNA SENIOR SUPPLEMENT MEDICARE AETNA SENIOR SUPPLEMENT Advance Directives For more information, please contact: [phone] * Full Code (Latest Code Status on File) Date Activated Date Inactivated Comments 02/06/2023 10:49 AM 02/07/2023 3:38 PM Care Teams Shoulder Pad Molder Relationship Specialty Start Date End Date Bronson Joyce MD [address] [facility] [address] [place] [address] PCP - General 06/18/14
--- OUTSIDE RECORDS SUMMARY | 2024-04-15 14:59 | XMS_ITS | Encounter Summary ---
Author Organization [facility] Address [address] [facility] [place] [address] Care Team Providers Care First Coat Operator Name Role Phone Bronson Joyce Primary Care Provider [phone] Encounter Details Date Type Department Care Team (Late st Contact Info) Description 01/06/2022 Lab Requisition [facility] DermPath Lab [address] [facility], [place] [address] Johnson Cueva MD [address] [place] [address] Social History Tobacco Use Types [...] Priority Date/Time Associated Diagnosis Comments DERMATOPATHOLOGY Routine 01/04/2022 12:0 0 AM B[facility] documented in this encounter Results * DERMATOPATHOLOGY (01/04/2022 12:00 AM BILINGUAL NANNY) Case Report Dermatopathology Report Case: [id number] Authorizing Provider: Johnson Cueva MD Collected: 01/04/2022 12:00 AM Ordering Location: [facility] DermPath Lab Received: 01/06/2022 01:55 PM Pathologist: Porsche Romero MD Specimens: A) - Skin, right mid pretibia B) - Skin, right midline lower pretibia C) - Skin, right ant med lower pretibia 2 1:31 PM [facility] DERMATOPATHOLOGY LABORATORY Final Diagnosis Specimen A. SKIN, right mid pretibia: ACTINIC KERATOSIS (L57.0) STASIS DERMATITIS (L30.8) Specimen B. SKIN, right midline lower pretibia: HYPERPLASTIC (HYPERTROPHIC) ACTINIC KERATOSIS (L57.0) STASIS DERMATITIS (L30.8) Specimen C. 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 The specimen consists of a shave biopsy measuring 9x6x1 mm. Jar 0. Specimen B: Received is one formalin filled container labeled with the patient's name and designated right midline lower pretibia. The specimen consists of a shave biopsy measuring 8x7x1 mm. Jar 0. Specimen C: Received is one formalin filled container labeled with the patient's name and designated right ant med lower pretibia. The specimen consists of a shave biopsy measuring 49m71s5 mm. Jar 0. 2 1:31 PM [facility] DERMATOPATHOLOGY LABORATORY Microscopic Description Specimen A. SKIN, right mid pretibia: There is focal parakeratosis. The lower half of the epidermis shows disorderly maturation of keratinocytes with nuclear pleomorphism. There is focal spongiosis. The dermis shows a sparse, perivascular lymphocytic infiltrate surrounding dilated, thick-walled vessels, which are increased in number. Specimen B. SKIN, right midline lower pretibia: There is hyperkeratosis alternating with parakeratosis. There is epidermal hyperplasia with disorderly maturation of keratinocytes with nuclear pleomorphism confined to the lower half of the epidermis. There is focal spongiosis. The dermis shows a sparse, perivascular lymphocytic infiltrate surrounding dilated, thick-walled vessels, which are increased in number. Specimen C. SKIN, right ant med lower pretibia: Arising in the epidermis and extending into the dermis there are irregularly shaped aggregates of keratinocytes showing evidence of premature cornification. 2 1:31 PM [facility] DERMATOPATHOLOGY LABORATORY Disclaimer An external and internal positive and negative controls are appropriate for the histochemical, immunohistochemical and immunofluorescence stain(s) in this case (if any), except where stated explicitly. The performance characteristics of the stain(s) cited in this report were developed and its performance characteristic determined by the Dermatopathology Laboratory at [facility], directed by Dr. Smitha Davison. These tests need not be, and therefore are not, approved by the [place] Food and Drug Administration. The tests are used for clinical purposes. Billing Codes Specimen Charges Stain Charges 68309 34205 51751 1 1 1 2 1:31 PM [facility] DERMATOPATHOLOGY LABORATORY Embedded Images 2 1:31 PM [facility] DERMATOPATHOLOGY LABORATORY Pathology/Cytology TISSUE SPECIMEN FROM SKIN / Unknown 01/04/2022 01/06/2022 1:55 PM BILINGUAL NANNY Miscellaneous samples (specimen) TISSUE SPECIMEN FROM SKIN / Unknown 01/04/2022 01/06/2022 1:55 PM BILINGUAL NANNY Miscellaneous samples (specimen) TISSUE SPECIMEN FROM SKIN / Unknown 01/04/2022 01/06/2022 1:55 PM [facility] Johnson Cueva MD LAB - PATHOLOGY/CYTO LOGY ORDERABLES DERMATOPATHOLOGY LABORATORY [facility] - Department of Dermatology [facility] Medicine [address] [place] [address], [address] [phone] documented in this encounter Visit Diagnoses Not on filedocumented in this encounter Care Teams First Coat Operator Relationship Specialty Start Date End Date Bronson Joyce DO [address] [facility] [address] [facility] [address] [place] [address] PCP - General 02/08/18 documented as of this encounter
--- OUTSIDE RECORDS SUMMARY | 2024-04-15 14:59 | XMS_ITS | Encounter Summary ---
Author Organization [facility] Address [address] [place] [address] Care Team Providers Care Meat Pickler Name Role Phone Bronson Joyce Primary Care Provider [phone]- [phone] Encounter Details Date Type Department Care Team (Late st Contact Info) Description 05/14/2019 Lab Requisition [facility] DermPath Lab [address] [place] [address] Johnson Cueva MD [address] [place] [address] Social History Tobacco Use Types [...] Priority Date/Time Associated Diagnosis Comments DERMATOPATHOLOGY Routine 05/13/2019 12:0 0 AM CDT documented in this encounter Results * DERMATOPATHOLOGY (05/13/2019 12:00 AM CDT) Case Report Dermatopathology Report Case: [id number] Authorizing Provider: Johnson Cueva MD Collected: 05/13/2019 12:00 AM Ordering Location: [facility] Derm[facility] Lab Received: 05/14/2019 10:58 AM Pathologist: Porsche Romero MD Specimens: A) - Skin, right nose B) - Skin, left nose C) - Skin, right paraspinal back 0 2:54 PM CDT DERMATOPATHOLOGY LABORATORY Final Diagnosis Specimen A. SKIN, right nose: BASAL CELL CARCINOMA (C44.311) (see microscopic description and comment) Specimen B. 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 0 2:54 PM CDT DERMATOPATHOLOGY LABORATORY Gross Description Specimen A: Received is one formalin filled container labeled with the patient's name and designated right nose. The specimen consists of a shave biopsy (2 pieces) measuring 4v6b4af & 5c6q7op. Jar 0. Specimen B: Received is one formalin filled container labeled with the patient's name and designated left nose. The specimen consists of a shave biopsy measuring 7g4v5ch. Jar 0. Specimen C: Received is one formalin filled container labeled with the patient's name and designated right paraspinal back. The specimen consists of a shave biopsy measuring 74s0i1pd. Jar 0. 0 2:54 PM CDT DERMATOPATHOLOGY LABORATORY Microscopic Description Specimen A. SKIN, right nose: The specimen consists of aggregates of basaloid cells, located within the superficial dermis, with high nuclear to cytoplasmic ratio and peripheral palisading. COMMENT: The small size of the specimen limits subtyping of the lesion. Specimen B. SKIN, left nose: Within the dermis there are aggregates of basaloid cells with a high nuclear to cytoplasmic ratio and peripheral palisading. Specimen C. SKIN, right paraspinal back: Within the dermis there are nodular aggregates of basaloid cells associated with fibromyxoid stroma and epithelial-stromal clefts. At the advancing margin of the neoplasm, there are smaller angulated nests that infiltrate the dermis. 0 2:54 PM CDT DERMATOPATHOLOGY LABORATORY Disclaimer An external and internal positive and negative controls are appropriate for the histochemical, immunohistochemical and immunofluorescence stain(s) in this case (if any), except where stated explicitly. The performance characteristics of the stain(s) cited in this report were developed and its performance characteristic determined by the Dermatopathology Laboratory at [facility], directed by Dr. Smitha Davison. These tests need not be, and therefore are not, approved by the [place] Food and Drug Administration. The tests are used for clinical purposes. Billing Codes Specimen Charges Stain Charges 84349 78653 63098 1 1 1 0 2:54 PM CDT DERMATOPATHOLOGY LABORATORY Embedded Images 0 2:54 PM CDT DERMATOPATHOLOGY LABORATORY Pathology/Cytology TISSUE SPECIMEN FROM SKIN / Unknown 05/13/2019 05/14/2019 10:58 AM CDT Miscellaneous samples (specimen) TISSUE SPECIMEN FROM SKIN / Unknown 05/13/2019 05/14/2019 10:58 AM CDT Miscellaneous samples (specimen) TISSUE SPECIMEN FROM SKIN / Unknown 05/13/2019 05/14/2019 10:58 AM CDT Johnson Cueva MD LAB - PATHOLOGY/CYTO LOGY ORDERABLES Performing Organization Address City/State/[facility] Co de Phone Number DERMATOPATHOLOGY LABORATORY [facility] - Department of Dermatology [address] [place] [address], [address]th Floor Lab [address] [phone] documented in this encounter Visit Diagnoses Not on filedocumented in this encounter Care Teams Meat Pickler Relationship Specialty Start Date End Date Bronson Joyce DO [address] [place] [address] PCP - General 02/08/18 documented as of this encounter
--- OUTSIDE RECORDS SUMMARY | 2024-04-15 14:59 | XMS_ITS | Encounter Summary ---
Author Organization [facility] Address [address] [place] [address] Care Team Providers Care Nephrology Nurse Name Role Phone Bronson Joyce DO Primary Care Provider [phone]- [phone] Encounter Details Date Type Department Care Team (Late st Contact Info) Description 11/23/2023 Lab Requisition [facility] - DermPath Lab [address] [facility] [place] [id number] Johnson Cueva MD [address] [place] [address] Social History Tobacco Use Types [...] Priority Date/Time Associated Diagnosis Comments DERMATOPATHOLOGY Routine 11/21/2023 12:0 0 AM CDT documented in this encounter Results * DERMATOPATHOLOGY (11/21/2023 12:00 AM CDT) Case Report Dermatopathology Report Case: [id number] Authorizing Provider: Johnson Cueva MD Collected: 11/21/2023 12:00 AM Ordering Location: [facility] - Received: 11/23/2023 02:17 PM DermPath Lab Pathologist: Clem Davison MD Specimen: Skin, right mid calf 10/22/202 4 2:46 PM CDT DERMATOPATHOLOGY LABORATORY Final Diagnosis [...] specimen consists of a shave biopsy measuring [id number] mm. Jar 0. 2:46 PM CDT DERMATOPATHOLOGY [...] characteristic determined by the Dermatopathology Laboratory at [facility], directed by Dr. Smitha Davison. These tests need not be, and therefore are not, approved by the [place] Food and Drug Administration. The tests are used for clinical purposes. Billing Codes Specimen Charges Stain Charges 76197 1 2:46 PM CDT DERMATOPATHOLOGY LABORATORY Embedded Images 2:46 PM CDT DERMATOPATHOLOGY LABORATORY Pathology/Cytolog y TISSUE SPECIMEN FROM SKIN / Unknown 11/21/2023 11/23/2023 2:17 PM CDT Johnson Cueva MD LAB - PATHOLOGY/CYTO LOGY ORDERABLES DERMATOPATHOLOGY LABORATORY [facility] - Department of Dermatology [address] [place] [address], [facility] [phone] documented in this encounter Visit Diagnoses Not on filedocumented in this encounter Care Teams Nephrology Nurse Relationship Specialty Start Date End Date Bronson Joyce DO [address] [place] [address] PCP - General 02/08/18 documented as of this encounter
== END 2024-04-15 13:26 | disposition home or self-care (01) ==
LOC: ANHCARD 13:26
PROVIDERS: PCP Internal Medicine; Visit Provider Internal Medicine Cardiovascular Disease
DX: I35.0 Nonrheumatic aortic (valve) stenosis (principal)
CPT/HCPCS: 93306